=== PATIENT | male | born 2000 | race Caucasian/White ===

== ENCOUNTER 2018-05-13 13:45 | Emergency (ER) | payer SELFPAY ==
[~2018-05-13] VITALS: Ht 170.2 cm; Wt 65.0 kg
[2018-05-13 13:50] VITALS: BP 125/69
== END 2018-05-13 15:55 | disposition left against medical advice (07) ==
LOC: ER 15:00
DX: R10.9 Unspecified abdominal pain (principal); Z53.21 Procedure and treatment not carried out due to patient leaving prior to being seen by health care provider